=== PATIENT | female | born 1955 | race Two or more races ===

== ENCOUNTER 2023-04-06 13:40 | Outpatient (AMB) | payer OTHER, SELFPAY ==
--- NOTE | 2023-04-06 13:53 | HO.NEPHOV_ITS ---
HPI HPI Comments History of Present Illness Details I had the privilege of seeing Claudia who has a history of mild CKD with proteinuria. She has HIV but is well controlled. Her last CD4 is over 2000. She does not have any chest pain, shortness of breath, proximal nocturnal dyspnea, orthopnea, pedal edema or urinary symptoms. She is tolerating JR inhibitor well. Her renal functions are at baseline. She does not have any proteinuria now. She had no new active complaints at the time of this office visit. [facility] Medical History (Updated 04/06/23 @ 14:16 by Gee Collado MD) Hypercalcemia Chronic kidney disease, stage 2 (mild) Surgical History (Updated 04/06/23 @ 14:01 by Gina Steen MA) History of cholecystectomy History of foot surgery Social History (Updated 04/06/23 @ 14:00 by Gina Steen MA) Alcohol intake: never Patient Tobacco Use Status: Current someday Tobacco user Vital Signs 04/06/23 13:57 Height 4 ft 11 in Weight 103 lb BMI 20.8 BP 130/80 Blood Pressure Location Lt brachial Position Sitting Pulse 69 Pulse Source Pulse Oximeter Pulse Oximetry (%) 96 Oxygen Delivery Method Room Air Physical Exam Vital Signs: Last Vital Signs Pulse 69 04/06/23 13:57 BP 130/80 04/06/23 13:57 Pulse Ox 96 04/06/23 13:57 Oxygen Delivery Method Room Air 04/06/23 13:57 BMI result Body Mass Index 20.8 Const General: comfortable and no acute distress Orientation/consciousness: patient oriented x3 HEENT Head: Yes normocephalic Mouth: Normal oral and palatal mucosa present Eyes EOM: EOMs intact bilaterally Neck Neck: Yes supple Resp Auscultation: clear to auscultation bilaterally Cardio Jugular venous distension: no JVD Rate: regular rate GI Palpation (GI): Soft to palpation Auscultation: normal bowel sounds General: Yes no CVA tenderness Back/Spine/Pelvis Back: no CVA tenderness Skin General skin exam: no rashes or lesions noted Neuro General: patient oriented x3 and moves all extremities Extrem General: Yes no pedal edema Assessment & Plan Assessment & Plan (1) Chronic kidney disease, stage 2 (mild): Code(s): N18.2 - Chronic kidney disease, stage 2 (mild) Plan Claudia most likely had HIVAN. Her protein in the urine is undetectable now on the current dose of JR-inhibitor. Her blood pressure is at goal . Her serum creatinine stable. Her volume status is optimal. She maintains good hydration. She avoids nonsteroidal anti-inflammatories. I did not make any medication changes today. Follow-up blood work and urine studies ordered. Follow-up given. Answered all questions Orders: Orders Electrolytes Today N18.2 - Chronic kidney disease, stage 2 (mild) Blood Urea Nitrogen Today N18.2 - Chronic kidney disease, stage 2 (mild) Protein Creatinine Ratio, Ur Today N18.2 - Chronic kidney disease, stage 2 (mild) Creatinine Today N18.2 - Chronic kidney disease, stage 2 (mild) Medications: Refilled enalapril maleate 2.5 mg PO DAILY 90 tabs 3RF 90 days Coding Level of Care Code Est Pt Level 3 (77494) Diagnoses Chronic kidney disease, stage 2 (mild) N18.2 Results Reviewed Nephrology Results: No Data to Display
[2023-04-06 13:57] VITALS: BP 130/80; PULSE 69; O2SAT 96; BMI 20.8
== END 2023-04-06 14:20 | disposition home or self-care (01) ==
PROVIDERS: PCP Internal Medicine; Visit Provider Internal Medicine Nephrology
DX: N18.2 Chronic kidney disease, stage 2 (mild) (principal)
CPT/HCPCS: 99213

== ENCOUNTER → 2023-04-06 13:40 | Outpatient (BNVA) | payer OTHER, SELFPAY | PROVIDERS: PCP Internal Medicine; Visit Provider Internal Medicine Nephrology | DX: N18.2 Chronic kidney disease, stage 2 (mild) (principal) | CPT/HCPCS: 99212 ==

== ENCOUNTER 2023-09-28 10:49 | Outpatient (REF) | payer OTHER, SELFPAY ==
[2023-09-28 19:02] LABS: Creatinine Urine 26.29 mg/dL; Total Protein Urine Random < 7 mg/dL (<12)
== END 2023-09-28 10:50 | disposition home or self-care (01) ==
LOC: HO.HKASLDS 10:49
PROVIDERS: Visit Provider Internal Medicine Nephrology
DX: N18.2 Chronic kidney disease, stage 2 (mild) (principal)
CPT/HCPCS: 82570; 84156

== ENCOUNTER 2023-10-05 11:48 | Outpatient (AMB) | payer OTHER, SELFPAY ==
[2023-10-05 12:37] VITALS: BP 116/70; PULSE 72; O2SAT 97; BMI 21.1
--- NOTE | 2023-10-05 12:37 | HO.NEPHOV ---
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 She has HIV but is well controlled. Her last CD4 is over 1999. She does not have any chest pain, shortness of breath, proximal nocturnal dyspnea, orthopnea, pedal edema or urinary symptoms. She is tolerating JR inhibitor well. Her renal functions are at baseline. She does not have any proteinuria now. She had no new active complaints at the time of this office visit. [facility] Medical History (Updated 04/06/23 @ 14:16 by Gee Collado MD) Hypercalcemia Chronic kidney disease, stage 2 (mild) Surgical History History of cholecystectomy History of foot surgery Social History Alcohol intake: never Patient Tobacco Use Status: Current someday Tobacco user Physical Exam Vital Signs: Last Vital Signs Pulse 72 10/05/23 12:37 BP 116/70 10/05/23 12:37 Pulse Ox 97 10/05/23 12:37 Oxygen Delivery Method Room Air 10/05/23 12:37 BMI result Body Mass Index 21.1 Const General: comfortable and no acute distress Orientation/consciousness: patient oriented x3 HEENT Head: Yes normocephalic Mouth: Normal oral and palatal mucosa present Eyes EOM: EOMs intact bilaterally Neck Neck: Yes supple Resp Auscultation: clear to auscultation bilaterally Cardio Jugular venous distension: no JVD Rate: regular rate GI Palpation (GI): Soft to palpation Auscultation: normal bowel sounds General: Yes no CVA tenderness Back/Spine/Pelvis Back: no CVA tenderness Skin General skin exam: no rashes or lesions noted Neuro General: patient oriented x3 and moves all extremities Extrem General: Yes no pedal edema Results Reviewed Nephrology Results: Urine Creatinine 26.29 mg/dL 09/28/23 Protein/Creatinin Ratio TNP 09/28/23 Assessment & Plan Assessment & Plan (1) Chronic kidney disease, stage 2 (mild): Code(s): N18.2 - Chronic kidney disease, stage 2 (mild) Category: Medical Plan Claudia most likely had HIVAN. Her protein in the urine is undetectable now on the current dose of JR-inhibitor. Her blood pressure is at goal . Her serum creatinine stable. Her volume status is optimal. She maintains good hydration. She avoids nonsteroidal anti-inflammatories. I did not make any medication changes today. Follow-up blood work and urine studies ordered. Follow-up given. Answered all questions Orders: Orders Creatinine Today N18.2 - Chronic kidney disease, stage 2 (mild) Electrolytes Today N18.2 - Chronic kidney disease, stage 2 (mild) Blood Urea Nitrogen Today N18.2 - Chronic kidney disease, stage 2 (mild) Protein Creatinine Ratio, Ur Today N18.2 - Chronic kidney disease, stage 2 (mild) Coding Level of Care Code Est Pt Level 4 (08790) Diagnoses Chronic kidney disease, stage 2 (mild) N18.2
== END 2023-10-05 12:55 | disposition home or self-care (01) ==
PROVIDERS: PCP Internal Medicine; Visit Provider Internal Medicine Nephrology
DX: N18.2 Chronic kidney disease, stage 2 (mild) (principal)
CPT/HCPCS: 99214

== ENCOUNTER → 2023-10-05 11:48 | Outpatient (BNVA) | payer OTHER, SELFPAY | PROVIDERS: PCP Internal Medicine; Visit Provider Internal Medicine Nephrology | DX: N18.2 Chronic kidney disease, stage 2 (mild) (principal) | CPT/HCPCS: 99212 ==

== ENCOUNTER 2024-04-04 09:37 | Outpatient (AMB) | payer OTHER, SELFPAY ==
--- NOTE | 2024-04-04 10:06 | HO.NEPHOV ---
Vital Signs 04/04/24 10:07 Height 4 ft 11 in Weight 102 lb 4 oz BMI 20.6 BP 130/80 Blood Pressure Location Rt brachial Position Sitting Pulse 65 Pulse Source Pulse Oximeter Pulse Oximetry (%) 96 Oxygen Delivery Method Room Air Intake Visit Reasons: 6 mon follow up-[facility] Security Software Engineer Required: No Accompanied by: Self / Same As Patient Allergies nevirapine Allergy (Verified 04/04/24 10:06) Unknown Penicillins Allergy (Verified 04/04/24 10:06) Unknown tetracycline Allergy (Verified 04/04/24 10:06) Unknown HPI Comments Details: Claudia was seen in follow up who has a history of mild CKD with proteinuria. She has HIV but is well controlled. She does not have any chest pain, shortness of breath, proximal nocturnal dyspnea, orthopnea, pedal edema or urinary symptoms. She is tolerating JR inhibitor well. Her renal functions are at baseline. She does not have any proteinuria now. She had no new active complaints at the time of this office visit. [facility] Medical History (Updated 04/06/23 @ 14:16 by Gee Collado MD) Hypercalcemia Chronic kidney disease, stage 2 (mild) Surgical History History of cholecystectomy History of foot surgery Social History Alcohol intake: never Patient Tobacco Use Status: Current someday Tobacco user Review of Systems Const All systems reviewed & are unremarkable except as noted in HPI and below Physical Exam Vital Signs: Last Vital Signs Pulse 65 04/04/24 10:07 BP 138/80 04/04/24 10:07 Pulse Ox 96 04/04/24 10:07 Oxygen Delivery Method Room Air 04/04/24 10:07 BMI result Body Mass Index 20.6 Const General: comfortable and no acute distress Orientation/consciousness: patient oriented x3 HEENT Head: Yes normocephalic Mouth: Normal oral and palatal mucosa present Eyes EOM: EOMs intact bilaterally Neck Neck: Yes supple Resp Auscultation: clear to auscultation bilaterally Cardio Jugular venous distension: no JVD Rate: regular rate GI Palpation (GI): Soft to palpation Auscultation: normal bowel sounds General: Yes no CVA tenderness Back/Spine/Pelvis Back: no CVA tenderness Skin General skin exam: no rashes or lesions noted Neuro General: patient oriented x3 and moves all extremities Extrem General: Yes no pedal edema Assessment & Plan Assessment & Plan (1) Chronic kidney disease, stage 2 (mild): Code(s): N18.2 - Chronic kidney disease, stage 2 (mild) Category: Medical Plan Claudia most likely had HIVAN. Her protein in the urine is undetectable now on the current dose of JR-inhibitor. Her blood pressure is at goal . Her serum creatinine stable. Her volume status is optimal. She maintains good hydration. She avoids nonsteroidal anti-inflammatories. I did not make any medication changes today. Follow-up blood work and urine studies ordered. Follow-up given. Answered all questions Orders: Orders Blood Urea Nitrogen 7 Months N18.2 - Chronic kidney disease, stage 2 (mild) Creatinine 7 Months N18.2 - Chronic kidney disease, stage 2 (mild) Electrolytes 7 Months N18.2 - Chronic kidney disease, stage 2 (mild) Calcium 7 Months N18.2 - Chronic kidney disease, stage 2 (mild) Protein Creatinine Ratio, Ur 7 Months N18.2 - Chronic kidney disease, stage 2 (mild) Coding Level of Care Code Est Pt Level 4 (31765) Diagnoses Chronic kidney disease, stage 2 (mild) N18.2
[2024-04-04 10:07] VITALS: BP 130/80; PULSE 65; O2SAT 96; BMI 20.6
== END 2024-04-04 10:33 | disposition home or self-care (01) ==
PROVIDERS: PCP Internal Medicine; Visit Provider Internal Medicine Nephrology
DX: N18.2 Chronic kidney disease, stage 2 (mild) (principal)
CPT/HCPCS: 99214

== ENCOUNTER → 2024-04-04 09:37 | Outpatient (BNVA) | payer OTHER, SELFPAY | PROVIDERS: PCP Internal Medicine; Visit Provider Internal Medicine Nephrology | DX: N18.2 Chronic kidney disease, stage 2 (mild) (principal) | CPT/HCPCS: 99212 ==

== ENCOUNTER 2024-10-18 13:27 | Outpatient (REF) | payer OTHER, SELFPAY ==
--- OUTSIDE RECORDS SUMMARY | 2024-10-18 14:06 | XMS_ITS | Clinical Summary ---
Author Organization [facility] Address [address] [place] [address] Care Team Providers Care Tobacco Hanger Name Role Phone Unavailable Primary Care Provider Unavailabl e Source Comments PLEASE NOTE, if this patient is a minor, it may be UNLAWFUL to discuss sensitive information that is contained in these records (such as FAMILY PLANNING, MENTAL HEALTH or SUBSTANCE ABUSE) with the minor patient's parent or other person without the patient's specific authorization.[facility] Immunizations Immunization Administration Dates Next Due Moderna COVID-19 Vaccine, re d cap blue label, 12+ Primary Series 09/05/2020,08/08/2020 Social History Tobacco Use Types Packs/Day Years Used Date Smoking Tobacco: Never Assessed Social Connections Answer Date Recorded Connectedness 0 01/06/2024 Financial Resource Strain Answer Date R ecorded Financial Resource Strain 0 2020 Stress Answer Date Recorded Stress 0 08/08/2020 Physical Activity Answer Date Recorded Physical Activity 0 08/08/2020 Food Insecurity Answer Date Recorded Food 0 01/13/2024 Transportation Needs Answer Date Record ed Transportation 0 08/08/2020 Housing Stability Answer Date Recorded Housing 0 08/08/2020 Safety and Environment Answer Date Mahesh rded Safety 0 08/08/2020 Utilities Answer Date Recorded Utilities 0 08/08/2020 Employment Answer Date Recorded Stress 0 01/06/2024 Comments Unknown Sex and Gender Information Value Date Recorded Sex Assigned at Not on file Legal Sex Female 7:05 AM PDT Gender Identity Not on file Sexual Orientation Not on file Plan of Treatment Health Maintenance Due Date Last Done Comments Diabetes Screening 1955 Hepatitis C Screening 1955 Lipid Screening 1956 Tobacco Screening 1955 Hypertension Screening (#1) 1974 Medicare Annual Wellness Visit 1974 Breast Cancer Screening (Mammogram) 1996 CT Colonography 2001 Colonoscopy 2001 Colorectal Cancer Screening 2001 FIT/gFOBT 2001 Fecal DNA 2001 Flexible Sigmoidoscopy 2001 Imm-Pneumococcal 50+ (2 of 2 - PCV) 04/29/201704/29 Imm-Zoster, Recombinant (2 of 2) 11/23/2020 09/29/19 Bone Density Screening 2021 Falls Prevention 2021 [id number] ( season) 2023 021, 08/08/2020 Alcohol and Drug Screen 04/19/2024 Depression Annual Screen 04/19/2024 Imm-Influenza (#1) 2024 01/16/2020, 0 01/05/2019, 01/17/2014 Imm-DTaP/Tdap/Td (2 - Td or Tdap) 11/05/2026 017 Insurance [place] MEDICA[place] D[place] [facility]
--- OUTSIDE RECORDS SUMMARY | 2024-10-18 14:06 | XMS_ITS | Clinical Summary ---
Author Organization [facility] Address [address] [place] [address] Phone Care Team Providers Care Corn Chip Maker Name Role Phone Finesse Leonardo MD Primary Care Provider [phone] Allergies Active Allergy Reactions Criticality Noted Date Comments Nevirapine Other (see comments) 09/06/2020 Penicillins Other (see comments) 09/06/2020 Tetracycline Other (see comments) 09/06/2020 Medications atorvastatin (LIPITOR) 20 MG tablet Take 1 tablet by mouth 1 (one) time each day 09/23/2020 Active Dovato 50-300 MG tablet Take 1 tablet by mouth 1 (one) time each day 06/06/2021 Active enalapril (VASOTEC) 2.5 MG tablet Take 0.5 tablets (1.25 mg total) by mouth 1 (one) time each day 15 tablet 5 07/17/2022 Active saccharomyces boulardii (FLORASTOR) 250 MG capsule Take 250 mg by mouth in the morning and 250 mg in the evening. Active Multiple Vitamin (multivitamin) tablet Take 1 tablet by mouth 1 (one) time each day Active Active Problems Problem Noted Date Diagnosed Date Hypercalcemia 09/09/2020 Chronic kidney disease, stage 2 (mild) Immunizations Immunization Administration Dates Next Due Moderna SARS-COV-2 09/05/2020,08/08/2020 Family History Relation Status Comments Father Mother Social History Tobacco Use Types Packs/Day Years Used Date Smoking Tobacco: Former Smokeless Tobacco: Former Comments:Smoking History Inf o:Some days Alcohol Use Standard Drinks/Week Comments No 0 (1 standard drink = 0.6 oz pur e alcohol) Comments Unknown Sex and Gender Information Value Date Recorded Sex Assigned at Not on file Legal Sex Female 5:06 PM EST Gender Identity Not on file Sexual Orientation Not on file Last Filed Vital Signs Vital Sign Reading Time Taken Comments Blood Pressure 122/72 10/05/2022 1:01 PM EDT Pulse 70 10/05/2022 1:01 PM EDT Temperature - - Respiratory Rate - - Oxygen Saturation 97% 10/05/2022 1:01 PM EDT Inhaled Oxygen Concentration - - Weight 45.7 kg (100 lb 12.8 oz) 10/05/2022 1:01 PM EDT Height 149.9 cm (4' 11 ) 10/05/2022 1:01 PM EDT Body Mass Index 20.36 10/05/2022 1:01 PM EDT Plan of Treatment Health Maintenance Due Date Last Done Comments Breast Cancer Screening 1956 Pneumococcal Vaccine: 50+ Ye ars (1 of 2 - PCV) 1975 Colorectal Cancer Screening: Annual FOBT 2005 Colorectal Cancer Screening: Colonoscopy 2005 Colorectal Cancer Screening: Sigmoidoscopy 2005 Influenza Vaccine (#1) 2024 Hepatitis B Vaccine Aged Out No longe r eligible based on patient's age to complete this topic [place] [address] ([id number]) AMAN BRENNER [id number] [facility] ([id number]) AMAN BRENNER [id number] Care Teams Corn Chip Maker Relationship Specialty Start Date End Date Finesse Leonardo MD PCP - General Internal Medicine 06/26/21
--- OUTSIDE RECORDS SUMMARY | 2024-10-18 14:06 | XMS_ITS | Clinical Summary ---
Author Organization [facility] Address [address] [place] [address] Phone Care Team Providers Care Ship Scaler Name Role Phone Finesse Lopez MD Primary Care Provider [phone] Allergies Active Allergy Reactions Criticality Noted Date Comments Penicillins Other 09/06/2020 Medications acetaminophen (TYLENOL) 500 mg tablet Take 1 tablet (500 mg total) by mouth. Active diclofenac (VOLTAREN) 1 % topical gel Apply 1 applicator topically. 3 Active dolutegravir-la mivudine (Dovato) 50-300 mg per tablet Take 1 tablet by mouth. 2 Active enalapril (VASOTEC) 2.5 mg tablet Take 0.5 tablets (1.25 mg total) by mouth. 3 Active lidocaine (LIDODERM) 5 % patch Place 1 patch on the skin. 3 Active multivitamin with iron Take 1 tablet by mouth 1 (one) time each day. Active fluticasone propionate (FLONASE) 50 mcg/actuation nasal spray 5 Active Allergy Relief, loratadine, 10 mg tablet Take 1 tablet (10 mg total) by mouth 1 (one) time each day if needed. 5 Active levocetirizine (XYZAL) 5 mg tablet 5 Active atorvastatin (LIPITOR) 20 mg tablet Take 1 tablet (20 mg total) by mouth at bedtime. 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 ([facility] [place], [facility] V28) 05/21/2016 CKD (chronic kidney disease) stage 3, GFR 30-59 ml/min ([facility] V24, [facility] V28) 02/25/2016 Overview (06/25/2023): F/u Dr Collado Lymphocytosis 10/08/2015 Overview (06/25/2023): Normal bone marrow biopsy 09/25/15, hematology at [facility] Hyperlipemia 07/23/2014 Overview (06/25/2023): 06/2014 labs 222 / 138 / 50 / 145 ASCVD 2.4% HIV (human immunodeficiency virus infection) ([facility] V24, [facility] V28) 07/23/2014 Overview (06/25/2023): Dr. Eli, on ART therapy 06/2014 labs - CD4 2084, VL UD Genital herpes 07/23/2014 Encounters Date Type Department Care Team Description 09/28/2024 Telephone Adult Medicine [address] [address] Finesse Lopez MD faxed order ([facility] PCP order form ) 08/30/2024 9:00 AM EDT Office Visit Orthopedic Surgery - [place] [address] [place] [address] [address] [place] [address] Ignacio Bruno MD Left shoulder pain, unspecified chronicity (Primary Dx); Rotator cuff arthropathy, left 08/03/2024 Telephone Adult Medicine [address] [address] Finesse Lopez MD from Last 3 Months Immunizations Name Administration Dates Next Due Influenza trivalent, 0.5mL ( Fluzone High-dose) 65yo and older 01/05/2019 Influenza trivalent, with pr eservative (Fluzone; Afluria) 6mo and older 01/17/2014 Pneumococcal polysaccharide 23 valent (Pneumovax 23) 2yo and older 04/29/2016 Tdap Tetanus diptheria acell ular pertussis (Boostrix; Adacel) 7yo and older 11/05/2016 Zoster recombinant (Shingrix) 19yo and older 03/2021 Surgical History Surgery Date Site/Laterality Comments BLADDER SURGERY PROCEDURE: HISTORICAL BLADDER SURGERY COLONOSCOPY 2005 PROCEDURE: HISTORICAL COLONOSCOPY; COMMENT: [facility] COLONOSCOPY 08/19/16 PROCEDURE: HISTORICAL COLONOSCOPY; COMMENT: [facility]- normal OTHER SURGICAL HISTORY 11/26/2016 Right PROCEDURE: DE OSTEOT W/WO LNGTH SHRT/CORRJ METAR XCP 1ST EA; COMMENT: right 1st MPJ cheilectomy BUNIONECTOMY 07/29/2017 Left PROCEDURE: BUNION SURGERY, SIMPLE REMOVAL; COMMENT: left renetta bunionectomy ESOPHAGOGASTRODUODENOSCOPY PROCEDURE: DE EGD TRANSORAL BIOPSY SINGLE/MULTIPLE; COMMENT: Performed on December 18, 2020-gastritis and duodenitis Medical History Medical History Date Comments HTN (hypertension) 07/23/2014 DX:HTN (hyper tension) Hyperlipemia 07/23/2014 DX:Hyperlipemia Genital herpes 07/23/2014 DX:Genital herpe s Lymphocytosis 10/08/2015 DX:Lymphocytosis CKD (chronic kidney disease) stage 3, GFR 30-59 ml/min ([facility] V24, [facility] V28) 02/25/2016 DX:CKD (chroni c kidney disease) stage 3, GFR 30-59 ml/min ([facility]); COMMENT: F/u Dr Collado 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 ([facility] V24, [facility] V28) 05/21/2016 DX: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 (HCC) History of hepatitis C 07/30/2014 DX:Histor y of hepatitis C; COMMENT: SVR with pegasys and ribavirin from 02/22-01/23 Dx 1996 Microalbuminuria 12/07/2017 DX:Microalbumin uria Esophageal reflux DX:Esophageal reflux Weight loss DX:Weight loss Dysphagia DX:Dysphagia Decreased appetite DX:Decreased appetite Nausea DX:Nausea Family History Medical History Relation Name Comments Other: alive and well Father Other: alive and well Mother Relation Name Status Comments Father Mother Social History Tobacco Use Types Packs/Day Years Used Date Smoking Tobacco: Former Cigarettes 0.5 40 0 04/19/1973 - 04/19/2013 Smokeless Tobacco: Never Tobacco Cessation:Counseling Given: Not Answered Alcohol Use Standard Drinks/Week Comments No 0 (1 standard drink = 0.6 oz pur e alcohol) Comments Unknown Sex and Gender Information Value Date Recorded Sex Assigned at Not on file Legal Sex Female 12:23 AM EST Gender Identity Not on file Sexual Orientation Not on file Obstetrics History Last Filed Vital Signs Vital Sign Reading Time Taken Comments Blood Pressure 104/60 07/13/2024 9:55 AM EDT Pulse 105 07/13/2024 9:55 AM EDT Temperature 36.4 C (97.5 F) 07/13/2024 9:55 AM EDT Respiratory Rate - - Oxygen Saturation 95% 07/13/2024 9:55 AM EDT Inhaled Oxygen Concentration - - Weight 46.7 kg (102 lb 14.4 oz) 07/13/2024 9:55 AM EDT Height 149.9 cm (4' 11.02 ) 07/13/2024 9:55 AM E DT Body Mass Index 20.77 07/13/2024 9:55 AM EDT Plan of Treatment Health Maintenance Due Date Last Done Comments Meningococcal ACWY Vaccine (1 - Risk 2-dose series) 1958 MMR Vaccines (1 of 2 - Risk 2-dose series) 1974 Hepatitis A Vaccines (1 of 2 - Risk 2-dose series) 1975 Cervical Cancer Screening: HPV 1977 Hepatitis B Vaccines (1 of 3 - Risk 3-dose series) 2016 Depression Screening 03/28/2022 12/07/2017 Falls Risk Assessment 03/28/2022 Lung Cancer Screening (Low Dose CT) 03/28/2022 Medicare Annual Wellness Visit 03/28/2022 Social Influencers of Health Screening 03/28/2022 COVID-19 Vaccine (7 - Moderna risk season) 2024 01/24/2024, 03/25/2022, 09/08/2021, Additional history exists Influenza Vaccine (#1) 2024 4, 01/19/2023, 12/03/2021, Additional history exists Breast Cancer Screening 02/17/2026 02/18/20 24, 01/22/2023, 01/07/2022, Additional history exists Colorectal Cancer Screening: Colonoscopy 08/19/2026 08/19/2016 DTaP,Tdap,and Td Vaccines (2 - Td or Tdap) 11/05/2026 11/05/2016 Cholesterol Screening (Lipid Panel) 07/13/2029 07/13/2024, 10/26/2023, 04/15/2023 Osteoporosis Screening (Bone Density Screening) 01/15/2033 01/15/2023, 01/15/2023 Zoster Vaccines Completed 01/02/2021, 09/28/2020 Pneumococcal Vaccine: 50+ Years Completed 11/23/2023, 12/03/2021, 04/29/2016 RSV Immunization Adult Patients Completed 11/23/2023 Hepatitis C Screening Completed 08/01/2024 , 08/01/2024, 06/19/2014 HIB Vaccines Aged Out No longer eligi ble based on patient's age to complete this topic HPV Vaccines Aged Out No longer eligi ble based on patient's age to complete this topic IPV Vaccines Aged Out No longer eligi ble based on patient's age to complete this topic Meningococcal B Vaccine Aged Out No l onger eligible based on patient's age to complete this topic RSV Immunization Patients Under 20 months Aged Out No longer eligible based on patient's age to complete this topic Varicella Vaccines Aged Out No longer eligible based on patient's age to complete this topic Procedures Procedure Name Priority Date/Time Associated Diagnosis Comments XR SHOULDER 2+ VIEWS LEFT Routine 08/30/2024 8:56 AM EDT Left shoulder pain, unspecified chronicity AST, ALT, BILIRUBIN ELR STATE REPORTABLES Routine 08/01/2024 9:34 AM EDT Human immunodeficiency virus (HIV) disease (CMS/HCC V24, CMS/HCC V28) LYMPHOCYTE T-CELL PANEL Routine 08/02/19 25 9:34 AM EDT Human immunodeficiency virus (HIV) disease (CMS/HCC V24, CMS/HCC V28) HEPATITIS C VIRUS QUANTITATIVE PCR Routine 08/01/2024 9:34 AM EDT Human immunodeficiency virus (HIV) disease (CMS/HCC V24, CMS/HCC V28) TREPONEMA PALLIDUM ANTIBODY WITH REFLEX TO RPR AND PARTICLE AGGLUTINATION Routine 08/01/2024 9:34 AM EDT Human immunodeficiency virus (HIV) disease (CMS/HCC V24, CMS/HCC V28) HIV 1 MOLECULAR STUDY QUANTITATIVE Routine 08/01/2024 9:34 AM EDT Human immunodeficiency virus (HIV) disease (CMS/HCC V24, CMS/HCC V28) HEPATITIS C ANTIBODY Routine 08/01/2024 9:34 AM EDT Human immunodeficiency virus (HIV) disease (CMS/HCC V24, CMS/HCC V28) CREATININE, SERUM Routine 08/01/2024 9:3 4 AM EDT Human immunodeficiency virus (HIV) disease (CMS/HCC V24, CMS/HCC V28) ALANINE AMINOTRANSFERASE Routine 08/01/2024 9:34 AM EDT Human immunodeficiency virus (HIV) disease (CMS/HCC V24, CMS/HCC V28) ASPARTATE AMINOTRANSFERASE Routine 08/01/2024 9:34 AM EDT Human immunodeficiency virus (HIV) disease (CMS/HCC V24, CMS/HCC V28) LIPID PANEL WITH REFLEX TO DIRECT LDL Routine 07/13/2024 10:27 AM EDT Hyperlipidemia, unspecified hyperlipidemia type MOISÉS SCREENING DIGITAL Routine 02/18/2024 3:44 PM EDT DXA BONE DENSITY STUDY 1+ SITS AXIAL SKEL Routine 01/15/2023 1:26 PM EDT Encounter for screening for osteoporosis HM COLONOSCOPY Routine 08/19/2016 from Last 3 Months or Most Recently Relevant to Health Maintenance Results * XR Shoulder 2+ Views Left (08/30/2024 8:56 AM EDT) Anatomical Region Laterality Modality Upper Extremities, Shoulder Left Comp uted Radiography Narrative 08/30/2024 8:59 AM EDT Left shoulder x-rays August 30, 2024. AP, Grashey, Y lateral, axillary views. No acute osseous abnormalities. Superior migration of the humeral head consistent with rotator cuff arthropathy. Narrowing of the acromiohumeral interval. Subtle changes of the glenohumeral joint consistent with DJD. Located glenohumeral joint. Ignacio Bruno MD IMG XR PROCEDURES Final Result * (ABNORMAL) Hepatitis C antibody (08/01/2024 9:34 AM EDT) Hepatitis C Antibody Positive (A) Negative LAB CHEMISTRY METHOD 08/01/2024 1:[address] [facility] Comment:If confirmation of t his positive HCV Ab screening test is needed, please redraw and order HCV Viral Load. Note--> This test may not be added on due to different specimen requirements. Blood Venous blood specimen / Unknown Venipuncture / Unknown 08/01/2024 9:34 AM EDT 08/01/2024 10:31 AM EDT us Sury Jacques MD LAB BLOOD ORDERABLES Мария ewing Result [facility] [address] [place] [address], [place] [phone] * AST, ALT, Bilirubin ELR state reportables (08/01/2024 9:34 AM EDT) [facility] ALT (SGPT) 23 10 - 60 unit/L LAB CHEMISTRY METHOD 08/01/2024 1:[address] [facility] AST (SGOT) 19 10 - 42 unit/L LAB CHEMISTRY METHOD 08/01/2024 1:[address] [facility] Total Bilirubin 0.3 0.0 - 1.4 mg/dL LAB CHEMISTRY METHOD 08/01/2024 1:[address] [facility] Blood Venous blood specimen / Unknown Venipuncture / Unknown 08/01/2024 9:34 AM EDT 08/01/2024 10:31 AM EDT Sury Jacques MD LAB BLOOD ORDERABLES Мария l Result Performing Organization Address City/[facility]/ZIP Co de Phone Number [facility] [address] [place] [address], [place] [phone] * Treponema pallidum antibody with reflex to RPR and particle agglutination (08/01/2024 9:34 AM EDT) [facility] T. Pallidum Antibodies Negative Negative LAB CHEMISTRY METHOD 08/01/2024 4:[address] [facility] Blood Venous blood specimen / Unknown Venipuncture / Unknown 08/01/2024 9:34 AM EDT 08/01/2024 10:31 AM EDT Sury Jacques MD LAB BLOOD ORDERABLES Мария l Result [facility] [address] [place] [address], [place] [phone] * Hepatitis C virus quantitative molecular study (08/01/2024 9:34 AM EDT) [facility] HCV Qual Interp Not Detected Not Detected LAB MOLECULAR DIAGNOSTICS METHOD 08/02/2024 6:[address] [facility] Comment:HCV RNA not detected , unable to report quantitative results. Blood Venous blood specimen / Unknown Venipuncture / Unknown 08/01/2024 9:34 AM EDT 08/01/2024 10:31 AM EDT Sury Jacques MD LAB BLOOD ORDERABLES Мария l Result [facility] [address] [place] [address], [place] [phone] * (ABNORMAL) Lymphocyte T-cell panel (08/01/2024 9:34 AM EDT) CD4 1,891(H) 426 - 1,776 cells/mcL 08/02/2024 4:29 PM EDT [facility] CD8 1,610(H) 161 - 838 cells/mcL 08/02/2024 4:29 PM EDT [facility] CD4/CD8 Ratio 1.17 0.90 - 4.90 08/02/2024 4:29 PM EDT [facility] CD4 % 39 33 - 64 % 08/02/2024 4:29 PM EDT [facility] CD8 % 33 10 - 39 % 08/02/2024 4:29 PM EDT [facility] Blood Venous blood specimen / Unknown Venipuncture / Unknown 08/01/2024 9:34 AM EDT 08/01/2024 10:30 AM EDT Sury Jacques MD LAB MOLECULAR DIAGNOSTICS ORDERABLES Final Result [facility] [address] [place] [address], [place] [phone] * (ABNORMAL) HIV 1 molecular study quantitative (08/01/2024 9:34 AM EDT) [facility] HIV-1 RNA Interpretation Detected (A) Not Detected LAB MOLECULAR DIAGNOSTICS METHOD 08/02/2024 6:[address] [facility] HIV-1 RNA Copies <20 <20 copies/mL LAB MOLECULAR DIAGNOSTICS METHOD 08/02/2024 6:[address] [facility] Comment:HIV RNA detected but below the limit of quantitation. Unable to report quantitative results <20 copies/mL. HIV-1 RNA Log <1.30 <1.30 Log 10 copies/mL LAB MOLECULAR DIAGNOSTICS METHOD 08/02/2024 6:[address] [facility] Blood Venous blood specimen / Unknown Venipuncture / Unknown 08/01/2024 9:34 AM EDT 08/01/2024 10:31 AM EDT Sury Jacques MD LAB BLOOD ORDERABLES Мария l Result Performing Organization Address City/[facility]/ZIP Co de Phone Number [facility] [address] [place] [address], * Creatinine (08/01/2024 9:34 AM EDT) [facility] Creatinine 0.82 0.50 - 1.10 mg/dL LAB CHEMISTRY METHOD 08/01/2024 11:[address] [facility] eGFR 78 >=60 mL/min/1. 73m2 LAB CHEMISTRY METHOD 08/01/2024 11:[address] [facility] Comment:Calculation based on the Chronic Kidney Disease Epidemiology Collaboration (CKD-EPI) equation refit without adjustment for race. Blood Venous blood specimen / Unknown Venipuncture / Unknown 08/01/2024 9:34 AM EDT 08/01/2024 10:31 AM EDT us Sury Jacques MD LAB BLOOD ORDERABLES Мария l Result [facility] [address] [place] [address], [place] [phone] * Alanine aminotransferase (08/01/2024 9:34 AM EDT) [facility] ALT (SGPT) 23 10 - 60 unit/L LAB CHEMISTRY METHOD 08/01/2024 11:[address] [facility] Blood Venous blood specimen / Unknown Venipuncture / Unknown 08/01/2024 9:34 AM EDT 08/01/2024 10:31 AM EDT Sury Jacques MD LAB BLOOD ORDERABLES Мария l Result [facility] [address] [place] [address], [place] [phone] * Aspartate aminotransferase (08/01/2024 9:34 AM EDT) [facility] AST (SGOT) 19 10 - 42 unit/L LAB CHEMISTRY METHOD 08/01/2024 11:[address] [facility] Blood Venous blood specimen / Unknown Venipuncture / Unknown 08/01/2024 9:34 AM EDT 08/01/2024 10:31 AM EDT Sury Jacques MD LAB BLOOD ORDERABLES Мария l Result [facility] [address] [place] [address], [place] [phone] * (ABNORMAL) Lipid panel with reflex to direct LDL (07/13/2024 10:27 AM EDT) [facility] Cholesterol 181 0 - 200 mg/dL LAB CHEMISTRY METHOD 07/13/2024 1:[address] [facility] Triglycerides 204(H) 0 - 150 mg/dL LAB CHEMISTRY METHOD 07/13/2024 1:[address] [facility] HDL 53 >=40 mg/dL LAB CHEMISTRY METHOD 07/13/2024 1:[address] [facility] LDL Calculated 87 0 - 100 mg/dL LAB CHEMISTRY METHOD 07/13/2024 1:[address] [facility] VLDL Cholesterol Robbin 40.8 mg/dL LAB CHEMISTRY METHOD 07/13/2024 1:[address] [facility] Non HDL Chol. (LDL+VLDL) 128 <145 mg/dL LAB CHEMISTRY METHOD 07/13/2024 1:[address] [facility] Chol/HDL Ratio 3.4 0.0 - 4.4 LAB CHEMISTRY METHOD 07/13/2024 1:[address] [facility] Blood Venous blood specimen / Unknown Venipuncture / Unknown 07/13/2024 10:27 AM EDT 07/13/2024 10:27 AM EDT [facility] LAB BLOOD ORDERABLES Fi nal Result [facility] [address] [place] [address], * MOISÉS SCREENING DIGITAL (02/18/2024 3:44 PM EDT) Anatomical Region Laterality Modality Mammography 02/18/2024 1:51 PM EDT Narrative 02/18/2024 3:44 PM EDT [facility] Diagnostic Imaging Department [address] [place] [address] Patient: NEY PARRA D.O.B./Age/Sex: 1955 - 68 - F Unit#: [id number] Location/Status: SPDIMAM/REG CLI Mnemonic/Ordering Site: [facility] Ordering Physician: FINESSE LOPEZ MD Moisés Screening Digital - 02/18/24 - 1523 Report Status:Signed EXAM: SCREENING MAMMOGRAPHY, BILATERAL HISTORY: SCREENING. No additional history. COMPARISON: 01/22/2023, 01/07/2022, 09/24/2020 TECHNIQUE: Synthesized CC and MLO projections of each breast. Tomosynthesis of each breast in the CC and MLO projections. ADDITIONAL IMAGING: Craniocaudal view of the left breast exaggerated 20 axilla Computer-aided detection was employed with the [employer] AI 3-D. TISSUE DENSITY: The breasts are heterogeneously dense, which may obscure small masses. (BI-RADS category C) FINDINGS: RIGHT BREAST: No suspicious mass. No suspicious calcification. No distortion. No additional suspicious right breast findings LEFT BREAST: No suspicious mass. No suspicious calcification. No distortion. No suspicious change in the region of the biopsy site marker. IMPRESSION: No mammographic evidence of malignancy. No suspicious interval change. A negative mammogram in the presence of a clinically suspicious palpable abnormality does not preclude the possibility of malignancy or alter the indications for biopsy. ASSESSMENT: BI-RADS 2: BENIGN RECOMMENDATION(S): 1: Routine screening mammogram BILATERAL in 1 year. Dictating Physician: Bhavin BENEDICT BRET MD Electronically Signed by: Bhavin BENEDICT BRET MD Dic Date/Time: 02/18/24 1539 Sign date/Time: 02/18/24 1544 Procedure Note Brandon Benedict MD - 02/19/2024 [facility] Diagnostic Imaging Department [address] [place] [address] Patient: NEY PARRA /Age/Sex: 1955 - 68 - F Unit#: [id number] Location/Status: SPDIMAM/REG CLI Mnemonic/Ordering Site: [facility] Ordering Physician: FINESSE LOPEZ MD Moisés Screening Digital - 02/18/24 - 1417 Report Status:Signed EXAM: SCREENING MAMMOGRAPHY, BILATERAL HISTORY: SCREENING. No additional history. COMPARISON: 01/22/2023, 01/07/2022, 09/24/2020 TECHNIQUE: Synthesized CC and MLO projections of each breast.Tomosynthesis of each breast in the CC and MLO projections. ADDITIONAL IMAGING: Craniocaudal view of the left breast exaggerated 20axilla Computer-aided detection was employed with the [employer] AI 3-D. TISSUE DENSITY: The breasts are heterogeneously dense, which may obscuresmall masses. (BI-RADS category C) FINDINGS: RIGHT BREAST: No suspicious mass. No suspicious calcification. No distortion. Noadditional suspicious right breast findings LEFT BREAST: No suspicious mass. No suspicious calcification. No distortion. Nosuspicious change in the region of the biopsy site marker. IMPRESSION: No mammographic evidence of malignancy. No suspicious interval change. A negative mammogram in the presence of a clinically suspicious palpable abnormality does not preclude the possibility of malignancy or alter the indications for biopsy. ASSESSMENT: BI-RADS 2: BENIGN RECOMMENDATION(S): 1: Routine screening mammogram BILATERAL in 1 year. Dictating Physician: Bhavin BENEDICT BRET MD Electronically Signed by: Bhavin BENEDICT BRET MD Dic Date/Time: 02/18/24 1539 Sign date/Time: 02/18/24 8702 us Finesse Lopez MD IMG BI PROCEDURES Final Result * DXA BONE DENSITY STUDY 1+ SITS AXIAL SKEL (01/15/2023 1:26 PM EDT) Anatomical Region Laterality Modality Bone Densitometr y 10/12/2022 4:32 PM EDT Narrative 01/15/2023 2:47 PM EDT BONE DENSITY Lumbar Spine T-score is +0.3 (SD relative to 20-29 y/o adult) Z-score is +2.2 (SD relative to age matched peers) This is normal by criteria defined by the WHO. Left Hip T-score is -1.4 Z-score is -0.2 This is consistent with osteopenia by criteria defined by the WHO. Impression: Based on the World Health Organization criteria, Ney Ibarra should be classified as having osteopenia. This patient has a 4% risk of major osteoporotic fracture and a 0.3% risk of hip fracture over the next 10 years. (World Health Organization Fracture Risk Assessment) [facility] Department of Internal Medicine recommends using National Osteoporosis Foundation (NOF) guidelines in treatment decisions related to osteoporosis. NOF guidelines suggest considering treatment for postmenopausal women and men aged 50 or older presenting with the following: History of hip or vertebral fracture. T-score less than or equal to -2.5 (DXA) at the femoral neck, total hip, or spine, after appropriate evaluation to exclude secondary causes. Low bone mass (T-score between -1.0 and -2.5 at the femoral neck or spine) AND a 10-year probability of a hip fracture greater than or equal to 3% OR a 10-year probability of a major osteoporosis-related fracture greater than or equal to 20% based on the [place]-adapted WHO algorithm Please note that all treatment decisions require clinical judgment and consideration of individual patient factors, including patient preferences, co-morbidities, previous drug use, risk factors not captured in the FRAX model (e.g., frailty, falls, vitamin D deficiency, increased bone turnover, interval significant decline in bone density) and possible under- or over-estimation of fracture risk by FRAX. Procedure Note Reshma Coyle MD - 05/25/2023 BONE DENSITY Lumbar Spine T-score is +0.3 (SD relative to 20-29 y/o adult) Z-score is +2.2 (SD relative to age matched peers) This is normal by criteria defined by the WHO. Left Hip T-score is -1.4 Z-score is -0.2 This is consistent with osteopenia by criteria defined by the WHO. Impression: Based on the World Health Organization criteria, Ney Ibarra should beclassified as having osteopenia. This patient has a 4% risk of majorosteoporotic fracture and a 0.3% risk of hip fracture over the next 10years. (World Health Organization Fracture Risk Assessment) [facility] Department of Internal Medicine recommendsusing National Osteoporosis Foundation (NOF) guidelines in treatmentdecisions related to osteoporosis. NOF guidelines suggest consideringtreatment for postmenopausal women and men aged 50 or older presentingwith the following: History of hip or vertebral fracture. T-score less than or equal to -2.5 (DXA) at the femoral neck, total hip,or spine, after appropriate evaluation to exclude secondary causes. Low bone mass (T-score between -1.0 and -2.5 at the femoral neck or spine)AND a 10-year probability of a hip fracture greater than or equal to 3% ORa 10-year probability of a major osteoporosis-related fracture greaterthan or equal to 20% based on the [place]-adapted WHO algorithm Please note that all treatment decisions require clinical judgment andconsideration of individual patient factors, including patientpreferences, co-morbidities, previous drug use, risk factors not capturedin the FRAX model (e.g., frailty, falls, vitamin D deficiency, increasedbone turnover, interval significant decline in bone density) and possibleunder- or over-estimation of fracture risk by FRAX. Finesse Lopez MD [facility] DXA PROCEDURES Final Result * Colonoscopy (08/19/2016) Colonoscopy negative Anatomical Region Laterality Modality Other Historical Provider HEALTH MAINTENANCE Final Result from Last 3 Months or Most Recently Relevant to Health Maintenance Insurance [facility] MEDICARE Member Subscriber Plan / Payer (Ef fective 2021-Present) Name:IbarraNey Sweeney Relation to Subscriber:Self Name:Ibarra BrayeNy perdue Payer ID:[id number] Group ID:[id number] Type:Not on file Address: [place] [address] [place] [phone] Care Teams Ship Scaler Relationship Specialty Start Date End Date Finesse Lopez MD [address] [place] [id number] PCP - General Internal Medicine 03/17/21
--- OUTSIDE RECORDS SUMMARY | 2024-10-18 14:07 | XMS_ITS | Data Portability ---
Author Organization Mobile Action [facility], [facility] Address [address] [place] [address] Care Team Providers Care Slitting Machine Operator Helper Name Role Phone [facility] Referring Provider [phone] Assessment No assessment recorded. Plan of Treatment Reminders Order Date Submit Date Provider Last Modified By Organization Details Last Modified Time Details Appointments None record ed. Lab None record ed. Referral None record ed. Procedures None record ed. Surgeries None record ed. Imaging None record ed. Medication Orders None record ed. Patient TargetsNo targets recorded. Patient InstructionsNo instructions recorded. Reason for Referral None Reported. Medical Equipment None Reported. Medications Name Sig Start Date Stop Date Status Note LastModified by Organization Details LastModified Time multivitamin tablet TAKE ONE TABLET BY MOUTH EVERY DAY active Not Available Not Available No t Available atorvastatin 20 mg tablet TAKE ONE TABLET BY MOUTH EVERY DAY active Not Available Not Available No t Available metronidazol e 0.75 % (37.5 mg/5 gram) vaginal gel APPLY INTRAVAGINA LLY DAILY FOR 7 DAYS active Not Available Not Available N ot Available enalapril maleate 2.5 mg tablet TAKE 1/2 TABLET BY MOUTH EVERY DAY active Not Available Not Available No t Available acetaminophe n 300 mg-codeine 30 mg tablet TAKE 1 TABLET BY MOUTH EVERY 8 HOURS active Not Available Not Available No t Available nitrofuranto in macrocrystal 100 mg capsule TAKE ONE CAPSULE BY MOUTH TWICE A DAY active Not Available Not Available No t Available albuterol sulfate HFA 90 mcg/actuatio n aerosol inhaler active Not Available Not Available Not Available naproxen 500 mg tablet TAKE ONE TABLET BY MOUTH TWICE A DAY WITH MEALS active Not Available Not Available No t Available Oyster Shell Calcium-Jannet min D3 500 mg-5 mcg (200 unit) tablet TAKE ONE TABLET 3 TIMES A WEEK ON WEDNESDAY, WEDNESDAY AND WEDNESDAY MORNING active Not Available Not Available No t Available Dovato 50 mg-300 mg tablet TAKE ONE TABLET BY MOUTH EVERY DAY active Not Available Not Available No t Available Daily-Kathy (with folic acid) 400 mcg tablet TAKE ONE TABLET BY MOUTH EVERY DAY active Not Available Not Available No t Available Vitals Date Recorded Respiratory rate Body temperature Heart rate Oxygen saturation Oxygen saturation in Arterial blood by Pulse oximetry Systolic blood pressure Diastolic blood pressure Provider Name and Address Organization Details Last Updated DateTime 2 16 /min 97.9 [degF] 78 /min 99 % 99 % 130 mm[Hg] 73 mm[Hg] Not Available [facility] - production 2 13:20:30 Social History None recorded. Functional Status None recorded. Mental Status None recorded. Family History Nothing Reported. Medical History No medical history recorded. Gynecological HistoryNo gynecological history recorded. Obstetrics History GPAL:G 0 P 0 0 0 0 Past Encounters Encounter ID Performer Location Encounter Start Date Encounter Closed Date Diagnosis/Indication Diagnosis SNOMED-CT Code Diagnosis ICD10 Code Diagnosis Note [id number] Consuelo Martini MD Main - [facility] [address] [place] [phone] 03/24/2022 13:20:15 03/26/2022 11:39:49 Bursitis of olecranon of left elbow [id number] M70.22 67 year old female, being evaluated for L elbow lesion for the last ten days. Patient reports left elbow has been getting progressiv willem more swollen, slightly painful to touch, without fever/chil ls or reduced range of motion of the elbow joint. No history of trauma. Seen by PCP yesterday but no interventi on offered. Patient has not taken any medication s for this. Exam today notable for normal vital signs, and a slightly erythemato us and edematous region over left olecranon that is fluctuant to palpation, mildly tender, and a small pinpoint erythemato us lesion similar to a small boil. Elbow joint with full ROM. Differenti al includes sterile vs septic bursitis vs gout (lower on differenti al), recommend elbow compressio n and avoidance of elbow trauma, along with scheduled NSAIDS for the next few days. If erythema, swelling or pain worsens during this time, recommend PCP or ER for possible fluid sampling +/- antibiotic s for septic bursitis. Health Concerns Section Related Observation LastModified by Organization Detai ls LastModified Time None Recorded Concern Status LastModified by Organization Details LastModified Time None Recorded Advance Directives Directive None Recorded Payers Insurance Date Sequence Insurance Name Policy Number Policy Cano Covered Member ID Cano Member ID Guarantor Name 03/24/2022 1 [facility] - DOS PRIOR TO 2022 - DUAL ELIGIBLE (MEDICARE REPLACEMENT/ADV ANTAGE - HMO) Claudia Ibarra [id number] Claudia Ibarra Notes Date Note Type Note Provider Name and Address Organization Details Recorded Time 03/24/2022 text/html CRC Nursing Assessment: Reason For Request: Member states they went to PCP yesterday 03/23/22 for a routine check up. Checking on slightly inflamed elbow. Quarter shaped blemish, discoloration, very light pain to the touch. No liquid, nothing to signal that it could be a pimple or wart of any kind. Chief Complaints: Wound Care Allergies: Penicillin Comments: Member wanted to have area checked as PCP did not give her any treatment, wants to make sure it is not infected .................. .................. .................. .................. .................. .................. .................. ............... Acid Dipper Note: Pt presents awake and alert c/o wound on her left elbow. Pt sts pimple like wound worsening for 1.5 weeks. Pain only with touch. Sts she saw PCP yesterday and didn t get any answers. Left elbow is red and slightly swollen with a dime sized area that is protruding. No puss when squeezed. Elbow wrapped with JR compression bandage and 600 mg PO ibuprofen administered. Pt advised to take 600 mg ibuprofen q8h for 3 days and if area looks worse on Wednesday, to go back to PCP or ED. .................. .................. .................. .................. .................. .................. .................. ............... Disposition: Fulfilled Consuelo Martini MD [address] [facility],[address], [place], [address], [employer] 03/24/2022 13:42:31 OBGyn Episode No OBEpisode recorded.
[2024-10-18 14:57] LABS: Anion Gap 11 (12-20); Blood Urea Nitrogen 14 mg/dL (9-16); Calcium 9.2 mg/dL (8.4-10.2); Carbon Dioxide 28 mmol/L (22-29); Chloride 104 mmol/L (96-108); Estimated Glomerular Filt Rate 52; Potassium 3.8 mmol/L (3.3-5.1); Sodium 139 mmol/L (135-145)
[2024-10-18 15:32] LABS: Protein/Creatinine Ratio, Ur 0.15 (<0.2); Total Protein Urine Random 16 mg/dL (<12)
== END 2024-10-18 13:28 | disposition home or self-care (01) ==
LOC: HO.HKASLDS 13:27
PROVIDERS: Visit Provider Internal Medicine Nephrology
DX: N18.2 Chronic kidney disease, stage 2 (mild) (principal)
CPT/HCPCS: 36415; 80051; 82310; 82565; 82570; 84156; 84520

== ENCOUNTER 2024-10-24 13:19 | Outpatient (AMB) | payer OTHER, SELFPAY ==
[2024-10-24 13:30] VITALS: BP 130/70; PULSE 94; O2SAT 96; BMI 21.0
--- NOTE | 2024-10-24 13:30 | HO.NEPHOV_ITS ---
Vital Signs 10/24/24 13:30 Height 4 ft 11 in Weight 104 lb BMI 21.0 BP 130/70 Blood Pressure Location Lt brachial Position Sitting Pulse 94 Pulse Source Pulse Oximeter Pulse Oximetry (%) 96 Oxygen Delivery Method Room Air Intake Visit Reasons: Follow Up 7mo-Conf Membership Correspondent Required: No Accompanied by: Self / Same As Patient Allergies nevirapine Allergy (Verified 10/24/24 13:37) Unknown Penicillins Allergy (Verified 10/24/24 13:37) Unknown tetracycline Allergy (Verified 10/24/24 13:37) Unknown HPI Comments Details: Claudia was seen in follow up who has a history of mild CKD with proteinuria. She has HIV but is well controlled. She does not have any chest pain, shortness of breath, proximal nocturnal dyspnea, orthopnea, pedal edema or urinary symptoms. She is tolerating JR inhibitor well. Her renal functions are at baseline. She does not have any proteinuria now. She had no new active complaints at the time of this office visit. [facility] Medical History (Updated 04/06/23 @ 14:16 by Gee Collado MD) Hypercalcemia Chronic kidney disease, stage 2 (mild) Surgical History History of cholecystectomy History of foot surgery Social History Alcohol intake: never Patient Tobacco Use Status: Current someday Tobacco user Physical Exam Vital Signs: Last Vital Signs Pulse 94 10/24/24 13:30 BP 136/70 10/24/24 13:30 Pulse Ox 96 10/24/24 13:30 Oxygen Delivery Method Room Air 10/24/24 13:30 BMI result Body Mass Index 21.0 Results Reviewed Nephrology Results: Sodium, (135-145) 139 mmol/L 10/18/24 Potassium, (3.3-5.1) 3.8 mmol/L 10/18/24 Chloride, (96-108) 104 mmol/L 10/18/24 Carbon Dioxide, (22-29) 28 mmol/L 10/18/24 BUN, (9-16) 14 mg/dL 10/18/24 Creatinine, (0.5-1.4) 1.06 mg/dL 10/18/24 Calcium, (8.4-10.2) 9.2 mg/dL 10/18/24 Urine Creatinine 107.77 mg/dL 10/18/24 Protein/Creatinin Ratio, (<0.2) 0.15 10/18/24 Assessment & Plan Assessment & Plan (1) Chronic kidney disease, stage 2 (mild): Code(s): N18.2 - Chronic kidney disease, stage 2 (mild) Category: Medical Plan Claudia most likely had HIVAN. Her protein in the urine is undetectable now on the current dose of JR-inhibitor. Her blood pressure is at goal . Her serum creatinine stable. Her volume status is optimal. She maintains good hydration. She avoids nonsteroidal anti-inflammatories. I did not make any medication changes today. Follow-up blood work and urine studies ordered. Follow-up given. Answered all questions Orders: Orders Creatinine 6 Months N18.2 - Chronic kidney disease, stage 2 (mild) Blood Urea Nitrogen 6 Months N18.2 - Chronic kidney disease, stage 2 (mild) Electrolytes 6 Months N18.2 - Chronic kidney disease, stage 2 (mild) Protein Creatinine Ratio, Ur 6 Months N18.2 - Chronic kidney disease, stage 2 (mild) Coding Level of Care Code Est Pt Level 4 (22051) Diagnoses Chronic kidney disease, stage 2 (mild) N18.2
--- OUTSIDE RECORDS SUMMARY | 2024-10-24 14:00 | XMS_ITS | Clinical Summary ---
Author Organization [facility] Address [address] [place] [address] Care Team Providers Care Poiser Name Role Phone Unavailable Primary Care Provider [...] Bone Density Screening 2021 Falls Prevention 2021 Ulp-[id number]-45 ( season) 2023 021, 08/08/2020 Alcohol and Drug Screen 04/19/2024 Depression Annual Screen 04/19/2024 Imm-Influenza (#1) 2024 01/16/2020, 0 01/05/2019, 01/17/2014 Imm-DTaP/Tdap/Td (2 - Td or Tdap) 11/05/2026 017 [place] D[place] [facility] DENTAL
--- OUTSIDE RECORDS SUMMARY | 2024-10-24 14:00 | XMS_ITS | Clinical Summary ---
Author Organization [facility] Address [address] [place] [address] Phone Care Team Providers Care Implementation Advisor Name Role Phone Finesse Leonardo MD Primary Care Provider [phone] Allergies Active Allergy Reactions Criticality Noted Date [...] patient's age to complete this topic [place] [address] ([id number]) [place] [phone] [facility] ([id number]) [place] [phone] Care Teams Implementation Advisor Relationship Specialty Start Date End Date Finesse Leonardo MD PCP - General Internal Medicine 06/26/21
--- OUTSIDE RECORDS SUMMARY | 2024-10-24 14:00 | XMS_ITS | Clinical Summary ---
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 ([facility] V24, [facility] V28) 05/21/2016 CKD (chronic kidney disease) stage 3, GFR 30-59 ml/min ([facility] V24, [facility] V28) 02/25/2016 Overview (06/25/2023): F/u Dr Collado Lymphocytosis 10/08/2015 Overview (06/25/2023): Normal bone marrow biopsy 09/25/15, hematology at [facility] Hyperlipemia 07/23/2014 Overview (06/25/2023): 06/2014 labs 222 / 138 / 50 / 145 ASCVD 2.4% HIV (human immunodeficiency virus infection) ([facility] V24, [facility] V28) 07/23/2014 Overview (06/25/2023): Dr. Eli, on ART therapy 06/2014 labs - CD4 2084, VL UD Genital herpes 07/23/2014 Encounters Date Type Department Care Team Description 09/28/2024 Telephone Adult Medicine [address] [phone] Finesse Lopez MD faxed order ([facility] PCP order form ) 08/30/2024 9:00 AM EDT Office Visit Orthopedic Surgery - [place] [address] [place] [address] [address] [place] [address] Ignacio Bruno MD Left shoulder pain, unspecified chronicity (Primary Dx); Rotator cuff arthropathy, left 08/03/2024 Telephone Adult Medicine [address] [phone] Finesse Lopez MD from Last [...] normal OTHER SURGICAL HISTORY 11/26/2016 Right PROCEDURE: NV OSTEOT W/WO LNGTH SHRT/CORRJ METAR XCP 1ST EA; COMMENT: right 1st MPJ cheilectomy BUNIONECTOMY 07/29/2017 Left PROCEDURE: BUNION SURGERY, SIMPLE REMOVAL; COMMENT: left renetta bunionectomy ESOPHAGOGASTRODUODENOSCOPY PROCEDURE: NV EGD TRANSORAL BIOPSY SINGLE/MULTIPLE; COMMENT: Performed on December 18, 2020-gastritis and duodenitis Medical History Medical History Date Comments HTN (hypertension) 07/23/2014 DX:HTN (hyper tension) Hyperlipemia 07/23/2014 DX:Hyperlipemia Genital herpes 07/23/2014 DX:Genital herpe s Lymphocytosis 10/08/2015 DX:Lymphocytosis CKD (chronic kidney disease) stage 3, GFR 30-59 ml/min ([facility] V24, [facility] V28) 02/25/2016 DX:CKD (chroni c kidney disease) stage 3, GFR 30-59 ml/min ([facility]); COMMENT: F/u Dr Collado 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 Note--> This test may not be added on due to different specimen requirements. Blood Venous blood specimen / Unknown Venipuncture / Unknown 08/01/2024 9:34 AM EDT 08/01/2024 10:31 AM EDT us Sury Jacques MD LAB BLOOD ORDERABLES Мария ewing Result [facility] [address] [place] [address], [place] [phone] * AST, ALT, Bilirubin ELR state reportables (08/01/2024 9:34 AM EDT) [facility] ALT (SGPT) 23 10 - 60 unit/L LAB CHEMISTRY METHOD 08/01/2024 1:37 PM EDT [facility] AST (SGOT) 19 10 - 42 unit/L LAB CHEMISTRY METHOD 08/01/2024 1:37 PM EDT [facility] Total Bilirubin 0.3 0.0 - 1.4 mg/dL LAB CHEMISTRY METHOD 08/01/2024 1:37 PM EDT [facility] Blood Venous blood specimen / Unknown Venipuncture / Unknown 08/01/2024 9:34 AM EDT 08/01/2024 10:31 AM EDT Sury Jacques MD LAB BLOOD ORDERABLES Мария l Result Performing Organization Address City/[facility]/ZIP Co de Phone Number [facility] [address] [place] [address], [place] [phone] * Treponema pallidum antibody with reflex to RPR and particle agglutination (08/01/2024 9:34 AM EDT) [facility] T. Pallidum Antibodies Negative Negative LAB CHEMISTRY METHOD 08/01/2024 4:55 PM EDT [facility] Blood Venous blood specimen / Unknown Venipuncture / Unknown 08/01/2024 9:34 AM EDT 08/01/2024 10:31 AM EDT Sury Jacques MD LAB BLOOD ORDERABLES Мария l Result [facility] [address] [place] [address], [place] [phone] * Hepatitis C virus quantitative molecular study (08/01/2024 9:34 AM EDT) [facility] HCV Qual Interp Not Detected Not Detected LAB MOLECULAR DIAGNOSTICS METHOD 08/02/2024 6:19 AM EDT [facility] Comment:HCV RNA not detected , unable to report quantitative results. Blood Venous blood specimen / Unknown Venipuncture / Unknown 08/01/2024 9:34 AM EDT 08/01/2024 10:31 AM EDT Sury Jacques MD LAB BLOOD ORDERABLES Мария l Result [facility] [address] [place] [address], [place] [phone] * (ABNORMAL) Lymphocyte T-cell panel (08/01/2024 9:34 AM EDT) CD4 1,891(H) 426 - 1,776 cells/mcL 08/02/2024 4:29 PM EDT [facility] CD8 1,610(H) 161 - 838 cells/mcL 08/02/2024 4:29 PM EDT [facility] CD4/CD8 Ratio 1.17 0.90 - 4.90 08/02/2024 4:29 PM EDT [facility] CD4 % 39 33 - 64 % 08/02/2024 4:29 PM EDT [facility] CD8 % 33 10 - 39 % 08/02/2024 4:29 PM EDT [facility] Blood Venous blood specimen / Unknown Venipuncture / Unknown 08/01/2024 9:34 AM EDT 08/01/2024 10:30 AM EDT Sury Jacques MD LAB MOLECULAR DIAGNOSTICS ORDERABLES Final Result [facility] [address] [place] [address], [place] [phone] * (ABNORMAL) HIV 1 molecular study quantitative (08/01/2024 9:34 AM EDT) [facility] HIV-1 RNA Interpretation Detected (A) Not Detected LAB MOLECULAR DIAGNOSTICS METHOD 08/02/2024 6:19 AM EDT [facility] HIV-1 RNA Copies <20 <20 copies/mL LAB MOLECULAR DIAGNOSTICS METHOD 08/02/2024 6:19 AM EDT [facility] Comment:HIV RNA detected but below the limit of quantitation. Unable to report quantitative results <20 copies/mL. HIV-1 RNA Log <1.30 <1.30 Log 10 copies/mL LAB MOLECULAR DIAGNOSTICS METHOD 08/02/2024 6:19 AM EDT [facility] Blood Venous blood specimen / Unknown Venipuncture / Unknown 08/01/2024 9:34 AM EDT 08/01/2024 10:31 AM EDT Sury Jacques MD LAB BLOOD ORDERABLES Мария l Result Performing Organization Address City/[facility]/ZIP Co de Phone Number [facility] [address] [place] [address], * Creatinine (08/01/2024 9:34 AM EDT) [facility] Creatinine 0.82 0.50 - 1.10 mg/dL LAB CHEMISTRY METHOD 08/01/2024 11:11 AM EDT [facility] eGFR 78 >=60 mL/min/1. 73m2 LAB CHEMISTRY METHOD 08/01/2024 11:11 AM EDT [facility] Comment:Calculation based on the Chronic Kidney Disease Epidemiology Collaboration (CKD-EPI) equation refit without adjustment for race. Blood Venous blood specimen / Unknown Venipuncture / Unknown 08/01/2024 9:34 AM EDT 08/01/2024 10:31 AM EDT us Sury Jacques MD LAB BLOOD ORDERABLES Мария l Result [facility] [address] [place] [address], [place] [phone] * Alanine aminotransferase (08/01/2024 9:34 AM EDT) [facility] ALT (SGPT) 23 10 - 60 unit/L LAB CHEMISTRY METHOD 08/01/2024 11:11 AM EDT [facility] Blood Venous blood specimen / Unknown Venipuncture / Unknown 08/01/2024 9:34 AM EDT 08/01/2024 10:31 AM EDT Sury Jacques MD LAB BLOOD ORDERABLES Мария l Result [facility] [address] [place] [address], [place] [phone] * Aspartate aminotransferase (08/01/2024 9:34 AM EDT) [facility] AST (SGOT) 19 10 - 42 unit/L LAB CHEMISTRY METHOD 08/01/2024 11:11 AM EDT [facility] Blood Venous blood specimen / Unknown Venipuncture / Unknown 08/01/2024 9:34 AM EDT 08/01/2024 10:31 AM EDT Sury Jacques MD LAB BLOOD ORDERABLES Мария l Result [facility] [address] [place] [address], [place] [phone] * (ABNORMAL) Lipid panel with reflex to direct LDL (07/13/2024 10:27 AM EDT) [facility] Cholesterol 181 0 - 200 mg/dL LAB CHEMISTRY METHOD 07/13/2024 1:35 PM EDT [facility] Triglycerides 204(H) 0 - 150 mg/dL LAB CHEMISTRY METHOD 07/13/2024 1:35 PM EDT [facility] HDL 53 >=40 mg/dL LAB CHEMISTRY METHOD 07/13/2024 1:35 PM EDT [facility] LDL Calculated 87 0 - 100 mg/dL LAB CHEMISTRY METHOD 07/13/2024 1:35 PM EDT [facility] VLDL Cholesterol Robbin 40.8 mg/dL LAB CHEMISTRY METHOD 07/13/2024 1:35 PM EDT [facility] Non HDL Chol. (LDL+VLDL) 128 <145 mg/dL LAB CHEMISTRY METHOD 07/13/2024 1:35 PM EDT [facility] Chol/HDL Ratio 3.4 0.0 - 4.4 LAB CHEMISTRY METHOD 07/13/2024 1:35 PM EDT [facility] Blood Venous blood specimen / Unknown Venipuncture / Unknown 07/13/2024 10:27 AM EDT 07/13/2024 10:27 AM EDT Ginna [facility] LAB BLOOD ORDERABLES Fi nal Result [facility] [address] [place] [address], * MOISÉS SCREENING DIGITAL (02/18/2024 3:44 PM EDT) Anatomical Region Laterality Modality Mammography 02/18/2024 1:51 PM EDT Narrative 02/18/2024 3:44 PM EDT [facility] Diagnostic Imaging Department [address] [place] [address] Patient: NEY PARRA D.O.B./Age/Sex: 1955 - 68 - F Unit#: [id number] Location/Status: SPDIMAM/REG CLI Mnemonic/Ordering Site: [facility] Ordering Physician: FINESSE LOPEZ MD Moisés Screening Digital - 02/18/24 - 3050 Report Status:Signed EXAM: SCREENING MAMMOGRAPHY, BILATERAL HISTORY: SCREENING. No additional history. COMPARISON: 01/22/2023, 01/07/2022, 09/24/2020 TECHNIQUE: Synthesized CC and MLO projections of each breast. Tomosynthesis of each breast in the CC and MLO projections. ADDITIONAL IMAGING: Craniocaudal view of the left breast exaggerated 20 axilla Computer-aided detection was employed with the [employer] AI 3-D. TISSUE DENSITY: The breasts are [...] Procedure Note Brandon Benedict MD - 02/19/2024 [facility] Diagnostic Imaging Department [address] [place] [address] Patient: NEY PARRA /Age/Sex: 1955 - 68 - F Unit#: [id number] Location/Status: SPDIMAM/REG CLI Mnemonic/Ordering Site: [facility] Ordering Physician: FINESSE LOPEZ MD Moisés Screening Digital - 02/18/24 - 1417 Report Status:Signed EXAM: SCREENING MAMMOGRAPHY, BILATERAL HISTORY: SCREENING. No additional history. COMPARISON: 01/22/2023, 01/07/2022, 09/24/2020 TECHNIQUE: Synthesized CC and MLO projections of each breast.Tomosynthesis of each breast in the CC and MLO projections. ADDITIONAL IMAGING: Craniocaudal view of the left breast exaggerated 20axilla Computer-aided detection was employed with the [employer] AI 3-D. TISSUE DENSITY: The breasts are [...] Dic Date/Time: 02/18/24 1539 Sign date/Time: 02/18/24 9896 us Finesse Lopez MD IMG BI PROCEDURES [...] (World Health Organization Fracture Risk Assessment) [facility] Department of Internal Medicine recommends using National [...] (World Health Organization Fracture Risk Assessment) [facility] Department of Internal Medicine recommendsusing National Osteoporosis [...] fracture risk by FRAX. Finesse Lopez MD [facility] DXA PROCEDURES Final Result * Colonoscopy (08/19/2016) Colonoscopy negative Anatomical Region Laterality Modality Other Historical Provider HEALTH MAINTENANCE Final Result from Last 3 Months or Most Recently Relevant to Health Maintenance Insurance [facility] MEDIC[facility] Member Subscriber Plan / Payer (Ef fective 2021-Present) Name:IbarraNey Sweeney Relation to Subscriber:Self Name:Ibarra BrayNey perdue Payer ID:[id number] Group ID:[id number] Type:Not on file Address: [place] [address] [place] [phone] Care Teams Speech Teacher Relationship Specialty Start Date End Date Finesse Lopez MD [address] [place] [id number] PCP - General Internal Medicine 03/17/21
--- OUTSIDE RECORDS SUMMARY | 2024-10-24 14:00 | XMS_ITS | Data Portability ---
Author Organization [employer] [facility] Address [address] [place] [address] Care Team Providers Care Skiving Machine Operator Name Role Phone [facility] Referring Provider Assessment No assessment recorded. Plan of Treatment [...] in Arterial blood by Pulse oximetry Systolic And Diastolic Provider Name and Address Organization Details Last Updated DateTime 2 16 /min 97.9 [degF] 78 /min 99 % 99 % 130/73 mm[Hg] Not Available [employer] - production 2 [...] [id number] Consuelo Martini MD Main - [facility] [address] [place] [phone] 03/24/2022 13:20:15 03/26/2022 11:39:49 Bursitis of olecranon of left elbow [id number] M70.22 67 year old female, being evaluated [...] Cano Member ID Guarantor Name 03/24/2022 1 [facility] - DOS PRIOR TO 2022 - DUAL ELIGIBLE (MEDICARE REPLACEMENT/ADV ANTAGE - HMO) Claudia Ibarra [id number] Claudia Ibarra Notes Date Note Type Note [...] .................. .................. .................. .................. .................. .................. ............... [employer] Repairer Note: Pt presents awake and alert c/o [...] ............... Disposition: Fulfilled Consuelo Martini MD [address] [facility],[address], [place], [address], [employer] [facility] 03/24/2022 13:42:31 OBGyn Episode No OBEpisode recorded.
== END 2024-10-24 13:57 | disposition home or self-care (01) ==
LOC: HO.HKAS 13:19
PROVIDERS: PCP Internal Medicine; Visit Provider Internal Medicine Nephrology
DX: N18.2 Chronic kidney disease, stage 2 (mild) (principal)
CPT/HCPCS: 99214

== ENCOUNTER → 2024-10-24 13:19 | Outpatient (BNVA) | payer OTHER, SELFPAY | PROVIDERS: PCP Internal Medicine; Visit Provider Internal Medicine Nephrology | DX: N18.2 Chronic kidney disease, stage 2 (mild) (principal) | CPT/HCPCS: 99212 ==

== ENCOUNTER 2025-04-17 11:01 | Outpatient (REF) | payer OTHER, SELFPAY ==
[2025-04-17 14:43] LABS: Protein/Creatinine Ratio, Ur 0.14 (<0.2); Total Protein Urine Random 24 mg/dL (<12)
[2025-04-17 15:01] LABS: Anion Gap 12 (12-20); Blood Urea Nitrogen 17 mg/dL (9-16); Carbon Dioxide 29 mmol/L (22-29); Chloride 103 mmol/L (96-108); Estimated Glomerular Filt Rate 58; Potassium 4.4 mmol/L (3.3-5.1); Sodium 140 mmol/L (135-145)
--- OUTSIDE RECORDS SUMMARY | 2025-04-17 15:03 | XMS_ITS | Clinical Summary ---
Author Organization [address] [facility] Address [address] [place] [address] Phone Care Team Providers Care Surgical Training Specialist Name Role Phone Finesse Leonardo MD Primary Care Provider [phone] Allergies Active Allergy Reactions Criticality Noted Date [...] by mouth at bedtime. 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 Eli, on ART therapy 06/2014 labs - CD4 2084, VL UD Genital herpes 07/23/2014 Encounters Date Type Department Care Team Description 04/06/2025 Lab Requisition [facility] - Main Lab [address] [facility] [place] [address] Sury Jacques MD Acute upper respiratory infection, unspecified; Cough, unspecified; Fever, unspecified from Last 3 Months Immunizations Immunization Administration Dates Next Due Influenza trivalent, 0.5mL [...] normal OTHER SURGICAL HISTORY 11/26/2016 Right PROCEDURE: PA OSTEOT W/WO LNGTH SHRT/CORRJ METAR XCP 1ST EA; COMMENT: right 1st MPJ cheilectomy BUNIONECTOMY 07/29/2017 Left PROCEDURE: BUNION SURGERY, SIMPLE REMOVAL; COMMENT: left renetta bunionectomy ESOPHAGOGASTRODUODENOSCOPY PROCEDURE: PA EGD TRANSORAL BIOPSY SINGLE/MULTIPLE; COMMENT: Performed on December 18, 2020-gastritis and duodenitis Medical History Medical History Date Comments HTN (hypertension) 07/23/2014 DX:HTN (hyper tension) Hyperlipemia 07/23/2014 DX:Hyperlipemia Genital herpes 07/23/2014 DX:Genital herpe s Lymphocytosis 10/08/2015 DX:Lymphocytosis CKD (chronic kidney disease) stage 3, GFR 30-59 ml/min (CMS/HCC V24, CMS/HCC V28) 02/25/2016 DX:CKD (chroni c kidney disease) stage 3, GFR 30-59 ml/min ([facility]); COMMENT: F/u Dr Collado 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 ([facility]/HCC V24, [facility]/HCC V28) 05/21/2016 DX: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 [...] of 3 - Risk 3-dose series) 2016 Falls Risk Assessment 03/28/2022 Lung Cancer Screening (Low Dose CT) 03/28/2022 Medicare Annual Wellness Visit 03/28/2022 Social Influencers of Health Screening 03/28/2022 Depression Screening 04/19/2024 COVID-19 Vaccine ( season) 2024 01/24/2024, 03/25/2022, 09/08/2021, Additional history exists Influenza Vaccine (#1) 2024 , 01/19/2023, 12/03/2021, Additional history exists Breast Cancer [...] Patients Completed 11/23/2023 Hepatitis C Screening Completed 11/27/2024 , 08/01/2024, 08/01/2024, Additional history exists HIB Vaccines Aged Out No longer eligi [...] Procedure Name Priority Date/Time Associated Diagnosis Comments RESPIRATORY VIRUS PANEL MOLECULAR STUDY Routine 04/06/2025 12:00 AM EST Acute upper respiratory infection, unspecified Cough, unspecified Fever, unspecified HEPATITIS C VIRUS QUANTITATIVE PCR Routine 11/27/2024 9:31 AM EDT Human immunodeficiency virus (HIV) disease ([facility]/HCC V24, [facility] V28) Viral hepatitis C LIPID PANEL WITH REFLEX TO DIRECT LDL Routine 07/13/2024 10:27 AM EDT Hyperlipidemia, unspecified hyperlipidemia type MOISÉS SCREENING DIGITAL Routine 02/18/2024 3:44 PM EDT DXA BONE DENSITY STUDY 1+ SITS AXIAL SKEL Routine 01/15/2023 1:26 PM EDT Encounter for screening for osteoporosis COLONOSCOPY Routine 08/19/2016 from Last 3 Months or Most Recently Relevant to Health Maintenance Results * (ABNORMAL) Respiratory virus panel molecular study (04/06/2025 12:00 AM EST) Adenovirus Detection by PCR Not Detected Not Detected LAB MICROBIOLOGY METHOD 04/06/2025 9:[address] [facility] Influenza A PCR Not Detected Not Detected LAB MICROBIOLOGY METHOD 04/06/2025 9:[address] [facility] Influenza B PCR Not Detected Not Detected LAB MICROBIOLOGY METHOD 04/06/2025 9:[address] [facility] Coronavirus 229E Not Detected Not Detected LAB MICROBIOLOGY METHOD 04/06/2025 9:[address] [facility] Coronavirus HKU1 Not Detected Not Detected LAB MICROBIOLOGY METHOD 04/06/2025 9:[address] [facility] Coronavirus OC43 Not Detected Not Detected LAB MICROBIOLOGY METHOD 04/06/2025 9:[address] [facility] Coronavirus NL63 Not Detected Not Detected LAB MICROBIOLOGY METHOD 04/06/2025 9:[address] [facility] Parainfluenza Virus 1 Not Detected Not Detected LAB MICROBIOLOGY METHOD 04/06/2025 9:[address] [facility] Parainfluenza Virus 2 Not Detected Not Detected LAB MICROBIOLOGY METHOD 04/06/2025 9:[address] [facility] Parainfluenza Virus 3 Not Detected Not Detected LAB MICROBIOLOGY METHOD 04/06/2025 9:[address] [facility] Parainfluenza Virus 4 Not Detected Not Detected LAB MICROBIOLOGY METHOD 04/06/2025 9:[address] [facility] RSV PCR Not Detected Not Detected LAB MICROBIOLOGY METHOD 04/06/2025 9:[address] [facility] Human Metapneumovirus A and B Not Detected Not Detected LAB MICROBIOLOGY METHOD 04/06/2025 9:27 PM EST [facility] Rhinovirus/Entero virus Detected(A ) Not Detected LAB MICROBIOLOGY METHOD 04/06/2025 9:27 PM EST [facility] Bordetella pertussis Not Detected Not Detected LAB MICROBIOLOGY METHOD 04/06/2025 9:27 PM EST [facility] Bordetella parapertussis Not Detected Not Detected LAB MICROBIOLOGY METHOD 04/06/2025 9:27 PM EST [facility] Mycoplasma pneumo by PCR Not Detected Not Detected LAB MICROBIOLOGY METHOD 04/06/2025 9:27 PM EST [facility] Chlamydia pneumoniae Not Detected Not Detected LAB MICROBIOLOGY METHOD 04/06/2025 9:27 PM EST [facility] SARS COV-2 Not Detected Not Detected LAB MICROBIOLOGY METHOD 04/06/2025 9:[address] [facility] Swab 04/06/2025 04/06/2025 7:4 1 PM EST Narrative [facility] - 04/06/2025 9:27 PM EST Testing was performed using the [employer] Respiratory Pathogen PCR Assay. All results must be correlated with the clinical findings. Results should not be used as the sole basis for diagnosis. False Negative results may occur from the presence of sequence variants in the region targeted by the assay or the presence of inhibitors. Results may be affected by concurrent antiviral/antimicrobial therapy or levels of organisms that are below the limit of detection. us Sury Jacques MD LAB MICROBIOLOGY - GENERA L ORDERABLES Final Result [facility] [address] [place] [address], * Hepatitis C virus quantitative molecular study (11/27/2024 9:31 AM EDT) HCV Qual Interp Not Detected Not Detected LAB MOLECULAR DIAGNOSTICS METHOD 11/28/2024 2:00 PM EDT [facility] Comment:HCV RNA not detected , unable to report quantitative results. Blood Venous blood specimen / Unknown Venipuncture / Unknown 11/27/2024 9:31 AM EDT 11/27/2024 10:25 AM EDT us Sury Jacques MD LAB BLOOD ORDERABLES Мария l Result [facility] [address] [place] [address], [place] [phone] * (ABNORMAL) Lipid panel with reflex to direct LDL (07/13/2024 10:27 AM EDT) Cholesterol 181 0 - 200 mg/dL LAB CHEMISTRY METHOD 07/13/2024 1:35 PM EDT [facility] Triglycerides 204(H) 0 - 150 mg/dL LAB CHEMISTRY METHOD 07/13/2024 1:35 PM EDT [facility] HDL 53 >=40 mg/dL LAB CHEMISTRY METHOD 07/13/2024 1:35 PM EDT [facility] LDL Calculated 87 0 - 100 mg/dL LAB CHEMISTRY METHOD 07/13/2024 1:35 PM EDT [facility] VLDL Cholesterol Robbin 40.8 mg/dL LAB CHEMISTRY METHOD 07/13/2024 1:35 PM EDT [facility] Non HDL Chol. (LDL+VLDL) 128 <145 mg/dL LAB CHEMISTRY METHOD 07/13/2024 1:35 PM EDT [facility] Chol/HDL Ratio 3.4 0.0 - 4.4 LAB CHEMISTRY METHOD 07/13/2024 1:35 PM EDT [facility] Blood Venous blood specimen / Unknown Venipuncture / Unknown 07/13/2024 10:27 AM EDT 07/13/2024 10:27 AM EDT [facility] LAB BLOOD ORDERABLES Fi nal Result [facility] ([facility]) HOSPITAL LAB [address] [place] [address], * MOISÉS SCREENING DIGITAL (02/18/2024 3:44 PM EDT) Anatomical Region Laterality Modality Mammography 02/18/2024 1:51 PM EDT Narrative 02/18/2024 3:44 PM EDT [facility] Diagnostic Imaging Department [address] [place] [address] Patient: NEY PARRA /Age/Sex: 1955 - 68 - F Unit#: [id number] [facility]onic[facility]Ordering Site[place] [facility] [place] Ordering Physician: FINESSE LEONARDO MD [facility] Screening Digital - 02/18/24 - [id number] Report Status:Signed EXAM: SCREENING MAMMOGRAPHY, BILATERAL HISTORY: SCREENING. No additional history. COMPARISON: 01/22/2023, 01/07/2022, 09/24/2020 TECHNIQUE: Synthesized CC and MLO projections of each breast. Tomosynthesis of each breast in the CC and MLO projections. ADDITIONAL IMAGING: Craniocaudal view of the left breast exaggerated 20 axilla Computer-aided detection was employed with the untapt AI 3-D. TISSUE DENSITY: The breasts are [...] Procedure Note Brandon Benedict MD - 02/19/2024 [facility] Diagnostic Imaging Department [address] [place] [id number] Patient: BRAXTONSHALA YAONEY /Age/Sex: 1955 - 68 - F Unit#: [id number] Location/Status: [facility] CLI Mnemonic/Ordering Site: [facility] [place] Ordering Physician: FINESSE LEONARDO MD [facility] Screening Digital - 02/18/24 - [id number] Report Status:Signed EXAM: SCREENING MAMMOGRAPHY, BILATERAL HISTORY: SCREENING. No additional history. COMPARISON: 01/22/2023, 01/07/2022, 09/24/2020 TECHNIQUE: Synthesized CC and MLO projections of each breast.Tomosynthesis of each breast in the CC and MLO projections. ADDITIONAL IMAGING: Craniocaudal view of the left breast exaggerated 20axilla Computer-aided detection was employed with the iCAD profound AI 3-D. TISSUE DENSITY: The breasts are [...] Date/Time: 02/18/24 1539 Sign date/Time: 02/18/24 1544 us Finesse Leonardo MD IMG BI PROCEDURES Final Result * [...] on the World Health Organization criteria, Ney Braxton should be classified as having osteopenia. This patient has a 4% risk of major osteoporotic fracture and a 0.3% risk of hip fracture over the next 10 years. (World Health Organization Fracture Risk Assessment) The [facility] Department of Internal Medicine recommends using National [...] on the World Health Organization criteria, Ney Braxton should beclassified as having osteopenia. This patient has a 4% risk of majorosteoporotic fracture and a 0.3% risk of hip fracture over the next 10years. (World Health Organization Fracture Risk Assessment) The [facility] Department of Internal Medicine recommendsusing National Osteoporosis [...] over-estimation of fracture risk by FRAX. Finesse Leonardo MD IMG DXA PROCEDURES Final Result * Colonoscopy (08/19/2016) Colonoscopy negative Anatomical Region Laterality Modality Other Historical Provider HEALTH MAINTENANCE Final Result from Last 3 Months or Most Recently Relevant to Health Maintenance Additional Health Concerns Infection Onset Date Last Indicated Enterovirus 04/06/2025 04/06/2025 Rhinovirus 04/06/2025 04/06/2025 Insurance [facility] MEDICARE Member Subscriber Plan / Payer (Ef fective 2021-Present) Name:FOX NEY Relation to Subscriber:Self Name:Ney Parra Payer ID:[id number] Group ID:[id number] Type:Not on file Address: [place] [address] [address] [phone] Care Teams Surgical Training Specialist Relationship Specialty Start Date End Date Finesse Leonardo MD [address] [place] [phone] PCP - General Internal Medicine 03/17/21
--- OUTSIDE RECORDS SUMMARY | 2025-04-17 15:03 | XMS_ITS | Clinical Summary ---
Author Organization [facility] Address [address] [place] [address] Phone Care Team Providers Care Center Director Name Role Phone Finesse Leonardo MD Primary Care Provider [phone] Allergies Active Allergy Reactions Criticality Noted Date [...] patient's age to complete this topic [place] [address] ([id number]) [place] [phone] [facility] ([id number]) [place] [phone] Care Teams Center Director Relationship Specialty Start Date End Date Finesse Leonardo MD PCP - General Internal Medicine 06/26/21
--- OUTSIDE RECORDS SUMMARY | 2025-04-17 15:03 | XMS_ITS | Encounter Summary ---
Author Organization [facility] Address [address] [place] [address] Care Team Providers Care Associate Spa Director Name Role Phone Finesse Leonardo MD Primary Care Provider [phone] Encounter Details Date Type Department Care Team (Late st Contact Info) Description 04/06/2025 Lab Requisition [facility] - Main Lab [address] [facility] [place] [phone] Sury Jacques MD [address] [place] [address] Acute upper respiratory infection, unspecified; Cough, unspecified; Fever, unspecified Social History Tobacco Use Types Packs/Day Years Used Date Smoking Tobacco: Former Cigarettes 0.5 40 0 04/19/1973 - 04/19/2013 Smokeless Tobacco: Never Alcohol Use Standard Drinks/Week Comments No 0 (1 standard drink = 0.6 oz pur e alcohol) Comments Unknown Sex and Gender Information Value Date Recorded Sex Assigned at Not on file Legal Sex Female 12:23 AM EST Gender Identity Not on file Sexual Orientation Not on file documented as of this encounter Plan of Treatment Not on file documented as of this encounter Procedures Procedure Name Priority Date/Time Associated Diagnosis Comments RESPIRATORY VIRUS PANEL MOLECULAR STUDY Routine 04/06/2025 12:00 AM EST Acute upper respiratory infection, unspecified Cough, unspecified Fever, unspecified documented in this encounter Results * (ABNORMAL) Respiratory virus panel molecular study (04/06/2025 12:00 AM EST) Pathologist [facility] Adenovirus Detection by PCR Not Detected Not Detected LAB MICROBIOLOGY METHOD 04/06/2025 9:27 PM [facility] Influenza A PCR Not Detected Not Detected LAB MICROBIOLOGY METHOD 04/06/2025 9:27 PM [facility] Influenza B PCR Not Detected Not Detected LAB MICROBIOLOGY METHOD 04/06/2025 9:27 PM [facility] Coronavirus 229E Not Detected Not Detected LAB MICROBIOLOGY METHOD 04/06/2025 9:27 PM [facility] Coronavirus HKU1 Not Detected Not Detected LAB MICROBIOLOGY METHOD 04/06/2025 9:27 PM [facility] Coronavirus OC43 Not Detected Not Detected LAB MICROBIOLOGY METHOD 04/06/2025 9:27 PM [facility] Coronavirus NL63 Not Detected Not Detected LAB MICROBIOLOGY METHOD 04/06/2025 9:27 PM [facility] Parainfluenza Virus 1 Not Detected Not Detected LAB MICROBIOLOGY METHOD 04/06/2025 9:27 PM [facility] Parainfluenza Virus 2 Not Detected Not Detected LAB MICROBIOLOGY METHOD 04/06/2025 9:27 PM [facility] Parainfluenza Virus 3 Not Detected Not Detected LAB MICROBIOLOGY METHOD 04/06/2025 9:27 PM [facility] Parainfluenza Virus 4 Not Detected Not Detected LAB MICROBIOLOGY METHOD 04/06/2025 9:27 PM [facility] RSV PCR Not Detected Not Detected LAB MICROBIOLOGY METHOD 04/06/2025 9:27 PM [facility] Human Metapneumovirus A and B Not Detected Not Detected LAB MICROBIOLOGY METHOD 04/06/2025 9:27 PM [facility] Rhinovirus/Entero virus Detected(A ) Not Detected LAB MICROBIOLOGY METHOD 04/06/2025 9:27 PM [facility] Bordetella pertussis Not Detected Not Detected LAB MICROBIOLOGY METHOD 04/06/2025 9:27 PM EST [facility] Bordetella parapertussis Not Detected Not Detected LAB MICROBIOLOGY METHOD 04/06/2025 9:27 PM [facility] Mycoplasma pneumo by PCR Not Detected Not Detected LAB MICROBIOLOGY METHOD 04/06/2025 9:27 PM [facility] Chlamydia pneumoniae Not Detected Not Detected LAB MICROBIOLOGY METHOD 04/06/2025 9:27 PM [facility] SARS COV-2 Not Detected Not Detected LAB MICROBIOLOGY METHOD 04/06/2025 9:27 PM [facility] Swab 04/06/2025 04/06/2025 7:4 1 PM EST [facility] - 04/06/2025 9:27 PM EST Testing was performed using the [employer] Respiratory Pathogen PCR Assay. All results must [...] that are below the limit of detection. Sury Jacques MD LAB MICROBIOLOGY - GENERA L ORDERABLES Final Result [facility] [address] [place] [address], documented in this encounter Visit Diagnoses Diagnosis Acute upper respiratory infection, unspecified Cough, unspecified Fever, unspecified documented in this encounter Additional Health Concerns Infection Onset Date Last Indicated Resolved Time Respiratory Rule-Out 04/06/2025 04/06/2025 025 9:27 PM EST Enterovirus 04/06/2025 04/06/2025 Rhinovirus 04/06/2025 04/06/2025 documented as of this encounter Care Teams Associate Spa Director Relationship Specialty Start Date End Date Finesse Leonardo MD [address] [place] [phone] PCP - General Internal Medicine 03/17/21 documented as of this encounter
== END 2025-04-17 11:02 | disposition home or self-care (01) ==
LOC: HO.HKASLDS 11:01
PROVIDERS: Visit Provider Internal Medicine Nephrology
DX: N18.2 Chronic kidney disease, stage 2 (mild) (principal)
CPT/HCPCS: 36415; 80051; 82565; 82570; 84156; 84520